=== PATIENT | female | born 1960 | race Caucasian/White ===

== ENCOUNTER 2025-04-16 13:22 | Emergency (ER) | payer BC ==
[2025-04-16] MEDS ORDERED: hydrALAZINE 20 MG/ML VIAL ONE (13:49)
[2025-04-16 14:13] LABS: ALT (SGPT) 18 U/L (Less than 34); AST (SGOT) 19 U/L (11-34); Albumin 4.0 g/dL (3.1-4.5); Alkaline Phosphatase 59 U/L (40-110); Anion Gap 11 mmol/L (10-20); BUN (Urea Nitrogen) 18 mg/dL (9.8-20.1); Calc. Creatinine Clearance 0 mL/min (70-130); Calcium 8.8 mg/dL (7.8-10.44); Carbon Dioxide 26 mmol/L (23-31); Chloride 108 mmol/L (98-107); Globulin 3.2 g/dL (2.4-3.5); Glucose 120 mg/dL (80-115); Lipase 28 U/L (8-78); Potassium 4.2 mmol/L (3.5-5.1); Sodium 141 mmol/L (136-145)
[2025-04-16 14:15] LABS: Bilirubin, Total 0.3 mg/dL (0.3-1.2)
[2025-04-16 14:16] LABS: Platelet Count 137 10x3/uL (150-450)
[2025-04-16 14:17] LABS: Hematocrit 38.0 % (34.9-44.5); Hemoglobin 12.5 g/dL (12.0-15.5); Mean Corpuscular Hemoglobin 30.9 pg (27.0-33.0); Mean Corpuscular Volume 94.1 fL (81.6-98.3); Red Blood Cell (RBC) Count 4.04 10x6/uL (3.90-5.03); White Blood Cell (WBC) Count 4.28 10x3/uL (3.5-10.5)
[2025-04-16 14:18] LABS: #Basophils Less than 0.03 10x3/uL (0.0-0.2); #Eosinophils 0.16 10x3/uL (0.0-0.5); #Monocytes 0.33 10x3/uL (0.0-1.1); #Neutrophils 2.46 10x3/uL (1.5-8.4); %Basophils 0.5 % (0.0-2.0); %Eosinophils 3.7 % (0.0-6.0); %Lymphocytes 30.1 % (18.0-47.0); %Monocytes 7.7 % (0.0-10.0); %Neutrophils 57.5 % (40.0-75.0)
[2025-04-16 14:19] LABS: Troponin I Less than 0.010 ng/mL (< 0.028)
[2025-04-16 16:19] LABS: Troponin I Less than 0.010 ng/mL (< 0.028)
[2025-04-16 17:03] LABS: Troponin I Less than 0.010 ng/mL (< 0.028)
== END 2025-04-16 17:58 | disposition home or self-care (01) ==
LOC: CSHERS 13:22
DX: I10 Essential (primary) hypertension (principal); R07.9 Chest pain, unspecified; E78.00 Pure hypercholesterolemia, unspecified; K21.9 Gastro-esophageal reflux disease without esophagitis; Z79.899 Other long term (current) drug therapy
CPT/HCPCS: 36415; 71045; 80053; 83690; 83880; 84484; 85025; 93005; 94760; 96374; J0360